=== PATIENT | female | born 1975 | race African-American/Black ===

== ENCOUNTER 2018-10-25 17:11 | Emergency (ER) | payer BC, OTHER ==
[2018-10-25] MEDS ORDERED: Ketorolac Tromethamine 60 MG/2 ML VIAL ONE (17:40)
[2018-10-25] MEDS ORDERED: methylPREDNISolone Sod Succ/PF 125 MG/2 ML VIAL ONE (17:40)
== END 2018-10-25 18:05 | disposition home or self-care (01) ==
LOC: NAV ERS 17:11
DX: M25.551 Pain in right hip (principal); F17.210 Nicotine dependence, cigarettes, uncomplicated; B20 Human immunodeficiency virus [HIV] disease; Z79.899 Other long term (current) drug therapy
CPT/HCPCS: 96372; 99283; J1885; J2930

== ENCOUNTER 2019-02-15 15:13 | Emergency (ER) | payer OTHER ==
[2019-02-15] MEDS ORDERED: Acetaminophen 325 MG TAB ONE (16:19)
[2019-02-15] MEDS ORDERED: Cyclobenzaprine 10 MG TAB ONE (16:19)
[2019-02-15] MEDS ORDERED: Ketorolac Tromethamine 60 MG/2 ML VIAL ONE (16:19)
== END 2019-02-15 17:00 | disposition home or self-care (01) ==
LOC: NAV ERS 15:13
DX: G89.29 Other chronic pain (principal); M54.5 Low back pain; B20 Human immunodeficiency virus [HIV] disease; F17.210 Nicotine dependence, cigarettes, uncomplicated; Z79.899 Other long term (current) drug therapy
CPT/HCPCS: 96372; 99283; J1885

== ENCOUNTER 2022-12-20 08:02 | Emergency (ER) | payer OTHER | END 2022-12-20 09:29 | disposition home or self-care (01) | LOC: NAV ERS 08:02 | DX: J02.9 Acute pharyngitis, unspecified (principal); F17.210 Nicotine dependence, cigarettes, uncomplicated | CPT/HCPCS: 87081; 87430; 99283 ==